=== PATIENT | female | born 1995 | race Caucasian/White ===

== ENCOUNTER 2017-08-01 02:13 | Emergency (ER) | payer OTHER ==
[~2017-08-01] VITALS: Ht 167.6 cm; Wt 65.7 kg
[2017-08-01 02:15] VITALS: TEMP 36.5; Ht 167.6 cm; Wt 65.7 kg
[2017-08-01] MEDS ORDERED: IUD'IUD (02:41)
[2017-08-01 02:42] VITALS: O2SAT 98
[2017-08-01 03:04] LABS: PREG INTERNAL NEGATIVE QC NEG CLEAR BACKGROUND; PREG INTERNAL POSITIVE QC POS CONTROL LINE
--- NOTE | 2017-08-01 04:04 | EMERGENCY ROOM VISIT NOTE ---
History Report prepared by [place]: Conrad Rdz Under the Supervision of: Dr. Melly Cardoza D.O. First contact with patient: 02:15 Chief Complaint: ALCOHOL OVERDOSE Stated Complaint: ALCOHOL OVERDOSE History of Present Illness The patient is a 18 year old female who presents to the Emergency Room by EMS for evaluation of alcohol intoxication beginning shortly prior to arrival. Per nursing staff, the patient was seen by police stumbling outside of an apartment complex and being supported by friends while walking. She is not reported to have had any vomiting, or trauma. The patient denies any recent trauma or vomiting. HPI limited secondary to alcohol intoxication. Source of History: patient, nursing staff History Limited By: intoxication (alcohol) Onset: Shortly prior to arrival Quality: other (alcohol intoxication) Timing: constant Review of Systems ROS limited secondary to alcohol intoxication. Past Medical & Surgical Unobtainable secondary to alcohol intoxication. Family History Unobtainable secondary to alcohol intoxication. Social History Unobtainable secondary to alcohol intoxication. Current/Historical Medications Scheduled Iud's (Paragard Intrauterine Household Chores), 1 DOSE CONTINOUS Allergies Coded Allergies: No Known Allergies (Unverified , 08/01/17) Physical Exam Vital Signs Date Time Temp Pulse Resp B/P (MAP) Pulse Ox O2 Delivery O2 Flow Rate FiO2 08/01/17 06:11 88 18 91/48 98 Room Air 08/01/17 05:55 80 08/01/17 04:54 83 18 99/61 98 Room Air 08/01/17 03:09 79 18 93/66 98 Room Air 08/01/17 02:42 98 Room Air 08/01/17 02:42 98 Room Air 08/01/17 02:33 88 08/01/17 02:15 36.5 93 18 92/72 99 Room Air Physical Exam GENERAL: Very tearful. Smells of ETOH. EYE EXAM: normal conjunctiva, PERRL and EOM's grossly intact OROPHARYNX: no exudate, no erythema, lips, buccal mucosa, and tongue normal and mucous membranes are moist NECK: supple, no nuchal rigidity, no adenopathy, non-tender LUNGS: Clear to auscultation. Normal chest wall mechanics HEART: no murmurs, S1 normal and S2 normal ABDOMEN: abdomen soft, non-tender, normo-active bowel sounds, no masses, no rebound or guarding. BACK: Back is symmetrical on inspection and there is no deformity, no midline tenderness, no CVA tenderness. SKIN: no rashes and no bruising UPPER EXTREMITIES: upper extremities are grossly normal. LOWER EXTREMITIES: No pitting edema. NEURO EXAM: Normal sensorium, cranial nerves II-XII grossly intact, normal speech, no gross weakness of arms, no gross weakness of legs. Medical Decision & Procedures Laboratory Results Test 08/01/17 02:25 08/01/17 02:50 Human Chorionic Gonadotropin, Qual NEG (NEG) Ethyl Alcohol mg/dL 367.0 mg/dl (0-3) Bedside Glucose 94 mg/dl (70-90) Laboratory results per my review. ED Course 0217: The patient was evaluated in room A11A. A complete history and physical exam was performed. 0620: Upon reevaluation, the patient is feeling better. She has a sober friend who can take her home. The patient denies any pain, or nausea. I discussed the findings and the treatment plan with the patient. She verbalizes agreement and understanding. She was discharged home. Medical Decision Differential diagnosis: Etiologies such as alcohol intoxication, toxicologic, infection, hypoglycemia, electrolyte abnormalities, cardiac sources, intracerebral event, neurologic, as well as others were entertained. No evidence of trauma and no hx of such from EMS/bystanders. Pt improved here, VS stable, repeat exam unremarkable and pt denied any complaints. Discussed hydration, safe drinking practices, sx to watch/return for, she verbalized understanding and was agreeable with the plan. I have a low suspicion for any occult Gi pathology or trauma, doubt neuro pathology. Pt improved here and clinically sober at NH. Blood Pressure Screening Patient's blood pressure: Normal blood pressure Blood pressure disposition: Did not require urgent referral Impression Primary Impression: Alcoholic intoxication Scribe Attestation The scribe's documentation has been prepared under my direction and personally reviewed by me in its entirety. I confirm that the note above accurately reflects all work, treatment, procedures, and medical decision making performed by me. Departure Information Dispostion Home / Self-Care Patient Instructions My [facility] Additional Instructions Please drink responsibly and in a safe location. Do not drink and drive. If you have any new or concerning symptoms, please return the emergency room. Problem Qualifiers Primary Impression: Alcoholic intoxication Complication of substance-induced condition: uncomplicated Qualified Codes: F10.920 - Alcohol use, unspecified with intoxication, uncomplicated
[2017-08-01 06:11] VITALS: BP 91/48; PULSE 88; O2SAT 98
== END 2017-08-01 06:40 | disposition home or self-care (01) ==
LOC: C.EDA 02:15
DX: F10.920 Alcohol use, unspecified with intoxication, uncomplicated (principal); Y90.8 Blood alcohol level of 240 mg/100 ml or more